=== PATIENT | male | born 1995 | race Caucasian/White ===

== ENCOUNTER 2018-11-27 13:37 | Outpatient (CLI) | payer BC ==
--- NOTE | 2018-11-27 13:57 | RAD ---
EXAM: Chest 2 views: HISTORY: Pneumothorax on the right status post chest tube COMPARISON: None. FINDINGS: There is a normal-sized cardiomediastinal silhouette. A small bore right sided chest tube is seen wi thout evidence of pneumothorax. There is no evidence of consolidation, mass, or pleural effusion. The bones are unremarkable. IMPRESSION: No evidence of pneumothorax.
== END 2018-11-27 13:38 | disposition home or self-care (01) ==
LOC: RAD 13:37
PROVIDERS: ATTEND Thoracic Surgery (Cardiothoracic Vascular Surgery)
DX: J93.9 Pneumothorax, unspecified (principal)
CPT/HCPCS: 71046

== ENCOUNTER 2018-11-28 10:09 | Emergency (ER) | payer BC ==
--- NOTE | 2018-11-28 11:05 | RAD ---
RADIOGRAPH CHEST 2 VIEWS: DATE: 11/28/2018 HISTORY: 23-year-old male with spontaneous pneumothorax. Dyspnea. COMPARISON: 11/27/2018 FINDINGS: There is no airspace density, pulmonary edema, pleural effusion, pneumothorax, or cardiomegaly. Small bore right pleural catheter remains. There is no interval change overall. IMPRESSION: 1. No acute cardiopulmonary findings. 2. Right-sided Heimlich valve. 3. No pneumothorax.
[2018-11-28] MEDS ORDERED: HYDROcodone/Acetaminophen 10/325 mg Tablet ONE (11:31)
== END 2018-11-28 11:40 | disposition home or self-care (01) ==
LOC: ERS 10:09
DX: Z48.03 Encounter for change or removal of drains (principal); K21.9 Gastro-esophageal reflux disease without esophagitis
CPT/HCPCS: 32552; 71046